=== PATIENT | male | born 1995 | race African-American/Black ===

== ENCOUNTER 2018-08-11 14:59 | Emergency (ER) | payer SELFPAY ==
[~2018-08-11] VITALS: Ht 180.3 cm; Wt 61.0 kg
[2018-08-11 15:45] VITALS: BP 148/86
== END 2018-08-11 18:30 | disposition left against medical advice (07) ==
LOC: ER 14:59
DX: K08.89 Other specified disorders of teeth and supporting structures (principal); F12.10 Cannabis abuse, uncomplicated; F17.200 Nicotine dependence, unspecified, uncomplicated; Z53.21 Procedure and treatment not carried out due to patient leaving prior to being seen by health care provider